=== PATIENT | male | born 1945 | race Caucasian/White ===

== ENCOUNTER 2016-06-15 16:27 | Emergency (ER) | payer MEDICARE, BC ==
[2016-06-15] MEDS ORDERED: MORPHINE SULFATE 10 MG/ML SYRG IV ONE (16:46)
[2016-06-15] MEDS ORDERED: ONDANSETRON HCL/PF 2 MG/ML VIAL IV ONE (16:47)
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
[2016-06-15] MEDS ORDERED: MORPHINE SULFATE 2 MG/ML DISP.SYRIN ONE (16:55)
[2016-06-15] MEDS ORDERED: MORPHINE SULFATE 4 MG/ML SYRG ONE ×5 (16:55→22:40)
[2016-06-15] MEDS ORDERED: ONDANSETRON HCL/PF 2 MG/ML VIAL ONE (16:55)
[2016-06-15 17:12] LABS: Mean Cell Volume 89.2 fl (78-100); Mean Corpuscular Hemoglobin 29.7 pg (27-31); Mean Corpuscular Hgb Conc 33.3 g/dl (32-36); Mean Platelet Volume 10.3 fl (6.0-9.5); Neutrophil # 9.3 K/mm3 (1.3-6.0); Neutrophil % 86.6 % (42-75.0); Platelet Count 268 K/mm3 (150-450); Red Blood Count 4.71 M/mm3 (4.7-6.0); Red Cell Distribution Width 12.8 % (11.5-14.0); White Blood Count 10.7 K/mm3 (4.0-10.5)
[2016-06-15 17:25] LABS: Prothrombin Time (Patient) 10.2 Seconds (9.4-11.4)
[2016-06-15 17:29] LABS: BUN/Creatinine Ratio 18.8 (9.0-21.6); Bilirubin, Total 0.3 mg/dL (0.0-1.1); Ca. Corrected For Albumin 9.2 mg/dL (8.4-10.2); Calcium * 9.5 mg/dL (7.9-10.9); Carbon Dioxide 25.9 mmol/L (24-32.6); INR 0.98 INR (0.90-1.10); Partial Thrombolplastin Time 22.9 Seconds (24-32); Potassium 3.9 mmol/L (3.4-4.6); Total Protein 7.5 gm/dL (6.2-8.2)
[2016-06-15] MEDS ORDERED: ALBUTEROL SULFATE 2.5 MG/0.5 ML VIAL.NEB IH ONE (18:17)
[2016-06-15] MEDS ORDERED: IBUPROFEN 600 MG TABLET ONE (18:17)
[2016-06-15] MEDS: MORPHINE SULFATE 4 MG/ML SYRG IV ONE ×2 (18:25→21:54)
[2016-06-15] MEDS ORDERED: MORPHINE SULFATE 2 MG/ML DISP.SYRIN IV ONE (21:49)
[2016-06-15 22:06] VITALS: BP 162/82
[2016-06-15] MEDS ORDERED: MORPHINE SULFATE 4 MG/ML SYRG IV ONE (22:38)
== END 2016-06-15 22:41 | disposition short-term general hospital (02) ==
LOC: ER 16:27
DX: S72.145A Nondisplaced intertrochanteric fracture of left femur, initial encounter for closed fracture (principal); W11.XXXA Fall on and from ladder, initial encounter; Z96.659 Presence of unspecified artificial knee joint